=== PATIENT | female | born 1985 | race Caucasian/White ===

== ENCOUNTER → 2024-06-27 | Day surgery (SDC) | payer OTHER ==
[2024-06-23 15:01] LABS: BASOPHILS % 0.8 % (0.0-1.0); EOSINOPHILS % 0.6 % (0.0-6.0); HEMATOCRIT 38.2 % (34.2-44.1); HEMOGLOBIN 12.6 g/dL (12.0-16.0); LYMPHOCYTES # (AUTO) 1.8 (1.0-3.2); LYMPHOCYTES % 36.3 % (18.0-39.1); MONOCYTES # (AUTO) 0.3 (0.2-0.8); MONOCYTES % 5.7 % (4.4-11.3); NEUTROPHILS # (AUTO) 2.8 (2.1-6.9); NEUTROPHILS % 56.4 % (38.7-80.0); PLATELET COUNT 168 x10e3/uL (140-360); RED CELL DISTRIBUTION WIDTH 12.6 % (11.7-14.4); WHITE BLOOD COUNT 4.91 x10e3/uL (4.8-10.8)
[2024-06-23 15:26] LABS: ALBUMIN 4.2 g/dL (3.5-5.0); ALBUMIN/GLOBULIN RATIO 1.7 (0.8-2.0); ANION GAP 11.8 mmol/L (8-16); BILIRUBIN,TOTAL 0.5 mg/dL (0.2-1.2); CALCIUM 9.4 mg/dL (8.4-10.2); CREATININE, SERUM 1.26 mg/dL (0.57-1.11); POTASSIUM 3.8 mmol/L (3.5-5.1); TOTAL PROTEIN 6.7 g/dL (6.5-8.1)
[~2024-06-27] MED LIST: BUPIVACAINE HCL 0.5% INJ 30 ML VIAL INJ ONE; KLONOPIN0.5 MG PO; LEXAPRO10 MG PO; LIDOCAINE 1% W/EPINEPHRINE 20 ML VIAL ONE; ONDANSETRON ODT4 MG PO; OZEMPIC0.25 MG/02 SQ; XYZAL5 MG PO
[2024-06-27] MEDS: LACTATED RINGER'S 1,000 ML ONE (05:52)
[2024-06-27] MEDS: CEFAZOLIN SODIUM 2 GM ONE (05:52)
[2024-06-27] MEDS: HYDROCODONE/APAP 7.5MG-325MG 1 EA TAB ONE (09:02)
[2024-06-27 09:40] VITALS: BP 116/71; PULSE 86; RESP 18; O2SAT 100
== END | disposition home or self-care (01) ==
LOC: OR 06:00
PROVIDERS: ATTEND Orthopaedic Surgery
DX: S83.232A Complex tear of medial meniscus, current injury, left knee, initial encounter (principal); S83.282A Other tear of lateral meniscus, current injury, left knee, initial encounter; M67.52 Plica syndrome, left knee; M65.162 Other infective (teno)synovitis, left knee; M06.9 Rheumatoid arthritis, unspecified; R00.0 Tachycardia, unspecified; K21.9 Gastro-esophageal reflux disease without esophagitis; F41.9 Anxiety disorder, unspecified; X58.XXXA Exposure to other specified factors, initial encounter; Z88.1 Allergy status to other antibiotic agents; Z01.812 Encounter for preprocedural laboratory examination; Z79.85 Long-term (current) use of injectable non-insulin antidiabetic drugs; Z79.899 Other long term (current) drug therapy; Z79.1 Long term (current) use of non-steroidal anti-inflammatories (NSAID)
CPT/HCPCS: 29881; 29999; 36415; 80053; 81025; 85025; C1713; J0690; J7121